=== PATIENT | female | born 1990 | race Caucasian/White ===

== ENCOUNTER 2023-12-21 19:41 | Emergency (ER) | payer OTHER, SELFPAY ==
[2023-12-21 19:44] VITALS: BP 166/100
[2023-12-21 22:10] VITALS: BP 140/83
--- NOTE | 2023-12-21 22:18 | ED.GENMED ---
History of Present Illness
General
Chief Complaint: Breathing Problem
Source: patient
Exam Limitations: none
Time Seen by Provider: 12/21/23 21:42
Nursing documentation reviewed up to this point in time: agreed with
Travel History
Have you had any contact with someone who has COVID-19?: No
Do you have any symptoms of coronavirus? Fever > 100 degrees, chills, cough, shortness of breath, sore throat, loss of taste or smell, muscle aches, or headache?: No
History of Present Illness
History of Present Illness:
Patient is a 33-year-old female who presents to the ER complaining of cough shortness of breath. Patient has a history of asthma however is relatively controlled and has not needed to use her inhaler in years. She went to a club 4 nights ago and
reports they had smoke machines all over. She also was smoking cigarettes and using her vape pen since then she has had asthma exacerbation.
She denies any fever or chills. She does not feel ill. No other sick contacts at home.
Past History
Past History
ED Past Medical History: Asthma
ED Past Surgical History: Cholecystectomy and
Social History
Tobacco: Smoker (occasional socially)
Alcohol: Occasional
Drug: Marijuana
Personal:
Living: with family
Employment: Employed
Review of Systems
Review of Systems
Allergies reviewed?: Yes
Other source history: family
All Other Systems: ROS reviewed and negative except as documented in HPI and ROS
Constitutional: Reports no symptoms; Denies fever, fatigue or chills
EENT: Reports no symptoms; Denies sore throat or runny nose
Respiratory: Reports cough and trouble breathing; Denies hemoptysis
Cardiac: Reports no symptoms
ABD/GI: Reports no symptoms
: Reports no symptoms
Musculoskeletal: Reports no symptoms
Skin: Reports no symptoms
Neurological: Reports no symptoms
Hematologic/Lymphatic: Reports no symptoms
Psychiatric: Reports no symptoms
Phy Exam
General Physical Exam
General Presentation: no apparent distress
General age: appears stated age
General Skin: warm and dry
General Habitus: normal
General Mental: alert
General Hydration: appears well hydrated
Cardiovascular Exam
Cardiovascular Exam: regular rate/rhythm, no murmur and normal peripheral pulses
Pulmonary Exam
Pulmonary Exam: no respiratory distress and other (slight exp wheeze b/l )
Cough: non productive cough
Neurological Exam
Neurological Exam: alert and oriented x3
Musculoskeletal Exam
Musculoskeletal Exam: full ROM
Skin Exam
Skin Exam: normal color and warm/dry
Psychiatric Exam
Psychiatric Exam: normal mood/affect
Course
Orders/Labs/Results
Orders:
Orders
12/21/23 19:47
CR Chest - 2 Views Urgent
Comment:
Reason For Exam: SOB
12/21/23 22:27
Albuterol Nebs [Ventolin Nebules] 2.5 mg INH R NOW STA
Benzonatate [Tessalon Perles] 200 mg PO NOW STA
Prednisone [Deltasone] 50 mg PO NOW STA
12/21/23 23:25
Ipratropium/Albuterol Sulfate [Duoneb] 3 ml INH R NOW STA
12/21/23 23:26
Ipratropium/Albuterol Sulfate [Duoneb] 3 ml .ROUTE .STK-MED ONE
Vital Signs
Initial and Last Documented VS:
Initial Vital Signs
Temp Pulse Resp BP Pulse Ox
98.2 F 90 18 166/100 99
12/21/23 19:44 12/21/23 19:44 12/21/23 19:44 12/21/23 19:44 12/21/23 19:44
Last Documented Vital Signs
Temp Pulse Resp BP Pulse Ox
98.5 F 81 24 140/83 99
12/21/23 22:10 12/21/23 22:10 12/21/23 22:10 12/21/23 22:10 12/21/23 23:15
MDM/Problems Addressed
Differential Diagnosis Includes:
Not limited to asthma exacerbation, less likely pneumonia
MDM/Problems Addressed:
Symptoms are consistent with asthma exacerbation. Patient is well-appearing nontoxic not hypoxic slight wheezing on exam on initial arrival. Patient was given nebulizers here with steroids feeling much better. Chest x-ray negative.
Chronic conditions affecting care:
asthma ( smoked cigarettes with vape several day ago)
*Critical Care Note
Total Time (30-74mins, 75-104mins- exclusive of procedures): Not Applicable
ED Attending Note
-
Portions of this chart may have been created with voice recognition software.� Occasional wrong word or��sound alike� substitutions may have occurred due to the inherent limitations of voice recognition software.
Discharge Plan
Departure
Patient Disposition: Home (Routine Discharge)
Date of Disposition: 12/21/23
Time of Disposition: 23:56
Patient with high blood pressure during this ER visit?: No
Condition: Fair
Covid-19: Not Applicable
Discharge Problem:
Asthma exacerbation
Instructions: Asthma, Adult (DC), BLOOD PRESSURE
Prescriptions:
New
benzonatate 200 mg capsule
200 mg PO TID PRN (Reason: Cough) Qty: 10 0RF
albuterol sulfate [ProAir HFA] 90 mcg/actuation HFA aerosol inhaler
2 inh inhalation Q6H PRN (Reason: shortness of breath or wheezing) Qty: 8.5 0RF
prednisone 50 mg tablet
50 mg PO DAILY Qty: 4 0RF
Referrals:
NONE,* [Family Provider] -
Activity Restrictions/Additional Instructions:
Use rescue inhaler as needed 2 puffs every 4-6 hours. Cough medication as needed. you may take every 8 hours as needed. Please take prednisone daily starting tomorrow for the next 4 days you were given the first dose here in the ER. All
medications were sent to your pharmacy .follow-up with family doctor in next several days and return if any worsening of symptoms
Interventions
Interventions:
*Risk Screen - Suicide Last Done: 12/21/23 19:44
*General Assessment Last Done: 12/21/23 19:44
*Neglect/Abuse Screening Last Done: 12/21/23 23:15
ED- Fall Risk Assessment Last Done: 12/21/23 23:05
*ED COVID-19 Vaccine History Last Done: 12/21/23 23:15
ED- Cardiac Assessment Last Done: 12/21/23 23:05
ED- Pulmonary Assessment Last Done: 12/21/23 23:05
[2023-12-21] MEDS: TESSALON PERLES 200 MG PO (22:54)
[2023-12-21] MEDS: DELTASONE 50 MG PO (22:54)
[2023-12-21] MEDS: VENTOLIN NEBULES 2.5 MG INH (22:55)
[2023-12-21] MEDS: DUONEB 3 ML INH (23:27)
[2023-12-22] VITALS: BP 136/84
== END 2023-12-22 00:04 | disposition home or self-care (01) ==
LOC: EMR 19:41
PROVIDERS: EMERGENCY PHYSICIAN Emergency Medicine
DX: J45.901 Unspecified asthma with (acute) exacerbation (principal); F17.210 Nicotine dependence, cigarettes, uncomplicated
CPT/HCPCS: 99284; 94640; 71046

== ENCOUNTER 2024-11-26 08:39 | Emergency (ER) | payer OTHER, SELFPAY ==
[2024-11-26 08:43] VITALS: BP 124/84
--- NOTE | 2024-11-26 10:12 | EDRN ---
Dr. Alonso in room w/ pt at this time.
--- NOTE | 2024-11-26 10:21 | ED.GENMED ---
History of Present Illness
General
Chief Complaint: Back Pain
Time Seen by Provider: 11/26/24 10:09
History of Present Illness
History of Present Illness:
Patient is a 34-year-old woman with history of asthma presenting to the emergency department with back pain. Patient states that 5 days ago she developed left-sided lower back pain. She went to a chiropractor who diagnosed with her spasm and
recommended heat and ice. She states that she has been taking aspirin with no relief. No numbness tingling. No weakness. No saddle anesthesia. No urinary incontinence or retention or symptoms. No history of IV drug use. No fevers or chills.
No trauma. She states this has happened to her once before that required prednisone and Flexeril and that did resolve the pain.
Past History
Past History
ED Past Medical History: Asthma
ED Past Surgical History: Cholecystectomy and
Social History
Tobacco: Smoker (occasional socially)
Alcohol: Occasional
Drug: Marijuana
Personal:
Living: with family
Employment: Employed
Phy Exam
Physical Exam
Physical Exam:
GENERAL: in no acute distress
HEENT: normocephalic, extraocular movements intact, moist oral mucosa
NECK: normal inspection
RESPIRATORY: no respiratory distress, clear to auscultation bilaterally
CARDIOVASCULAR: regular rate and rhythm
ABDOMEN/: soft, non-distended, non-tender to palpation, no rebound or guarding
Back: Left lower back tenderness to palpation, no rash, no midline tenderness
EXTREMITIES: non-tender, no edema/swelling
NEUROLOGIC: awake and alert, moves all extremities, neurovascularly intact, equal strength in upper and lower extremity
SKIN: warm
Course
Orders/Labs/Results
Orders:
Orders
11/26/24 10:21
Cyclobenzaprine HCl [Flexeril] 10 mg PO NOW STA
Ketorolac [Toradol] 15 mg IM NOW STA
11/26/24 10:30
Lidocaine [Lidocaine 4% Patch] 1 patch TOPICAL DAILY
Apply Lidocaine patch(s) to:: left lower back
Vital Signs
Initial and Last Documented VS:
Initial Vital Signs
Temp Pulse Resp BP Pulse Ox
98.8 F 69 18 124/84 99
11/26/24 08:43 11/26/24 08:43 11/26/24 08:43 11/26/24 08:43 11/26/24 08:43
Last Documented Vital Signs
Temp Pulse Resp BP Pulse Ox
98.8 F 65 16 120/79 97
11/26/24 08:43 11/26/24 11:43 11/26/24 11:43 11/26/24 11:43 11/26/24 11:43
MDM/Problems Addressed
Differential Diagnosis Includes:
34-year-old woman presenting to the emergency department with lower back pain for the past 5 days. Vitals are unremarkable and exam does show tenderness over her left lower back. Likely MSK pain. History and exam not consistent with cauda equina
osteomyelitis or an abscess. History exam not consistent with fracture. Will pain control with Toradol lidocaine patch and Flexeril. Discussed imaging and will hold off at this time.
*Critical Care Note
Total Time (30-74mins, 75-104mins- exclusive of procedures): Not Applicable
Update Note
Update Note:
On reevaluation states his pain has markedly improved. She is able to stand up and able to range her back without any difficulty. Will discharge at this time. Strict return precautions given.
ED Attending Note
-
Portions of this chart may have been created with voice recognition software.� Occasional wrong word or��sound alike� substitutions may have occurred due to the inherent limitations of voice recognition software.
Discharge Plan
Departure
Patient Disposition: Home (Routine Discharge)
Date of Disposition: 11/26/24
Time of Disposition: 11:40
Patient with high blood pressure during this ER visit?: No
Discharge Problem:
Back pain
Instructions: Low Back Pain (DC)
Prescriptions:
New
cyclobenzaprine 5 mg tablet
5 mg PO TID PRN (Reason: muscle spasm) Qty: 30 0RF
No Action
benzonatate 200 mg capsule
200 mg PO TID PRN (Reason: Cough) Qty: 10 0RF
albuterol sulfate [ProAir HFA] 90 mcg/actuation HFA aerosol inhaler
2 inh inhalation Q6H PRN (Reason: shortness of breath or wheezing) Qty: 8.5 0RF
prednisone 50 mg tablet
50 mg PO DAILY Qty: 4 0RF
Referrals:
NONE,* [Family Provider] -
Stand Alone Forms: Return to Work
Activity Restrictions/Additional Instructions:
We discussed pain medications:
You may take Tylenol (also known as Acetaminophen) for pain.
You may take 1000mg Acetaminophen (two extra-strength tablets) per dose, which should be taken every 6-8 hours, or three times a day.
If you have normal strength Tylenol, you can take 650mg (two normal strength tablets) every 4-6 hours.
Do not take more than 3,000mg (3 grams) of Acetaminophen per day.
Never take more than as directed on the bottle.
You may also take Ibuprofen (also known as Motrin or Advil). If taking with Tylenol, alternate and take between dosing.
You may take 400-800mg of Ibuprofen per dose, which should be taken every 6-8 hours.
Do not take more than 3200mg (3.2 grams) of Ibuprofen per day.
You may also benefit from using a Lidocaine Patch (also known as 'Salon Pas'), which is an over the counter pain patch.
Place it just over the site of pain, avoiding areas of skin damage, as per instructions on the patch.
You may use Flexeril as needed. Please do not drive after you take it as it can cause drowsiness.
Please see your primary care doctor soon to be reevaluated and to make sure that you are improving. We have included information about establishing care with a doctor if you do not have one.
We talked about your evaluation, diagnosis, and treatment in the Emergency Department today. You must see your primary doctor for recheck and followup care in order to evaluate your progress or any changes. Have your doctor recheck the test
results/information from the ED visit. As discussed, RETURN to the ED if you develop worsening/changing symptoms or have no improvement in symptoms after the treatments provided.
Interventions
Interventions:
*Risk Screen - Suicide Last Done: 11/26/24 10:57
*General Assessment Last Done: 11/26/24 10:57
*Neglect/Abuse Screening Last Done: 11/26/24 10:57
ED- Fall Risk Assessment Last Done: 11/26/24 10:57
*ED COVID-19 Vaccine History Last Done: 11/26/24 10:57
ED-Musculoskeletal Assessment Last Done: 11/26/24 10:57
Discharge Date and Time
Print Language: SERBIAN
[2024-11-26] MEDS: TORADOL 15 MG IM (10:41)
[2024-11-26] MEDS: FLEXERIL 10 MG PO (10:41)
[2024-11-26] MEDS: LIDOCAINE 4% PATCH 1 PATCH TOPICAL (10:44)
[2024-11-26 10:57] VITALS: BMI 46.2
[2024-11-26 11:43] VITALS: BP 120/79
== END 2024-11-26 11:50 | disposition home or self-care (01) ==
LOC: EMR 08:39
PROVIDERS: EMERGENCY PHYSICIAN Student in an Organized Health Care Education/Training Program
DX: M54.9 Dorsalgia, unspecified (principal); J45.909 Unspecified asthma, uncomplicated; F17.200 Nicotine dependence, unspecified, uncomplicated; Z90.49 Acquired absence of other specified parts of digestive tract
CPT/HCPCS: 99282; 96372